=== PATIENT | male | born 1985 | race Caucasian/White ===

== ENCOUNTER 2018-10-06 21:55 | Emergency (ER) | payer OTHER ==
[2018-10-06] MEDS ORDERED: Adacel Vial IM ONE ×2 (22:16→22:23)
[2018-10-06] MEDS ORDERED: XYLOCAINE 1% HCL 20 ML MDV IJ ONE (22:16)
[2018-10-06] MEDS ORDERED: BACIGUENT PACKET TP ONE (22:16)
[2018-10-06] MEDS ORDERED: BACIGUENT PACKET ONE ×2 (22:22→22:51)
[2018-10-06] MEDS ORDERED: XYLOCAINE 1% HCL 20 ML MDV ONE (22:22)
--- NOTE | 2018-10-06 22:22 | ERPHSYRPT ---
- History of Present Illness Time Seen by Provider: 10/06/18 22:17 Source: patient Exam Limitations: no limitations Patient Subjective Stated Complaint: pt states he dropped an aquarium on his foot and it was cut. states he cant bear weight on his foot now. Triage Nursing Assessment: pt alert and oriented, answers questions approp. respirations nonlabored with lungs cta. pt to room per wheelchair, transfers to stretcher per self, nonwt bearing on rt foot. laceration noted to top of rt foot approx 3cm. with dried blood surrounding. minimal bleeding noted at this time. swelling and bruising noted around laceration. Physician History: 33-year-old white male arrives with complaint of pain on his right lateral foot symptoms for one half hours also a laceration on the right lateral foot or the same duration of time. Patient states he dropped in the chori[place] his right foot he has pain in his right lateral foot he has a jagged 3 cm laceration to the right lateral foot he states he has pain with walking the right foot. Past medical history is negative. Past surgical history is negative. Method of Injury: other (dropped an aquarium on his right foot) Occurred: this evening (2 hours prior to arrival) Quality: constant Severity of Pain-Max: moderate Severity of Pain-Current: moderate Lower Extremities Pain: foot: right Modifying Factors: Improves With: other (pain with walking right foot). Worsens With: cold therapy, immobilization, movement, pain medication, rest Associated Symptoms: none Allergies/Adverse Reactions: No Known Drug Allergies Allergy (Verified 10/06/18 22:18) Home Medications: No Reportable Medications [No Reported Medications] 10/06/18 [History] Hx Tetanus, Diphtheria Vaccination/Date Given: Yes (unsure when) Hx Influenza Vaccination/Date Given: No Hx Pneumococcal Vaccination/Date Given: No Immunizations Up to Date: Yes - Review of Systems Constitutional: No Fever, No Chills Eyes: No Symptoms Ears, Nose, & Throat: No Symptoms Respiratory: No Cough, No Dyspnea Cardiac: No Chest Pain, No Edema, No Syncope Abdominal/Gastrointestinal: No Abdominal Pain, No Nausea, No Vomiting, No Diarrhea Genitourinary Symptoms: No Dysuria Musculoskeletal: Injury, Other (Pain with walking right foot, 3 cm laceration right lateral foot) Skin: Other (3 cm laceration right lateral foot) Neurological: No Dizziness, No Focal Weakness, No Sensory Changes Psychological: No Symptoms Endocrine: No Symptoms All Other Systems: Reviewed and Negative - Past Medical History Pertinent Past Medical History: No - Past Surgical History Past Surgical History: No - Social History Smoking Status: Current every day smoker How long have you smoked: 20yrs Exposure to second hand smoke: Yes Drug Use: marijuana Patient Lives Alone: No - Nursing Vital Signs Nursing Vital Signs: Initial Vital Signs Temperature 97.8 F 10/06/18 22:02 Pulse Rate 90 10/06/18 22:02 Respiratory Rate 16 10/06/18 22:02 Blood Pressure 150/91 10/06/18 22:02 O2 Sat by Pulse Oximetry 100 10/06/18 22:02 Pain Scale Pain Intensity 10 - Physical Exam General Appearance: mild distress Eyes, Ears, Nose, Throat Exam: moist mucous membranes Neck Exam: non-tender, supple Cardiovascular/Respiratory Exam: chest non-tender, normal breath sounds, regular rate/rhythm, no respiratory distress Gastrointestinal/Abdominal Exam: non-tender, guarding Back Exam: normal inspection, No vertebral tenderness Hips Exam: bilateral: non-tender, normal inspection, normal range of motion, no evidence of injury Legs Exam: bilateral leg: non-tender, normal inspection, normal range of motion , no evidence of injury Knees Exam: bilateral knee: non-tender, normal inspection, normal range of motion, no evidence of injury Ankle Exam: bilateral ankle: non-tender, normal inspection, normal range of motion, no evidence of injury Foot Exam: right foot: abrasions/lacerations (3 cm laceration right lateral foot ), left foot: non-tender, normal inspection, no evidence of injury, bilateral foot: normal range of motion, bone tenderness (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 with 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 a) DTR - Lower Extremities Exam: ankle (R): 2+, ankle (L): 2+ Neuro/Tendon Exam: normal sensation, normal motor functions Mental Status Exam: alert, oriented x 3, cooperative Skin Exam: other (3 cm laceration right lateral foot) SpO2 Interpretation: normal (100%) SpO2: 100 Oxygen Delivery: Room Air - Course Nursing assessment & vital signs reviewed: Yes - Radiology Exams Right Foot X-ray Interpretation: Interpreted by me (x ray right foot: no fractures, no subluxation) Ordered Tests: Active Orders 24 hr Category Date Time Status Prepare for Sutures STAT Care 10/06/18 22:16 Active Sutures STAT Care 10/06/18 22:16 Active Wound Care STAT Care 10/06/18 22:16 Active FOOT (MINIMUM 3 VIEWS) Stat Exams 10/06/18 22:16 Taken Medication Summary Discontinued Medications Generic Name Dose Route Start Last Admin Trade Name Christq PRN Reason Stop Dose Admin Bacitracin Zinc 0.9 gm 10/06/18 22:16 10/06/18 22:28 Baciguent Packet TP 10/06/18 22:17 1 gm STAT ONE Administration Bacitracin Zinc Confirm 10/06/18 22:22 Baciguent Packet Administered 10/06/18 22:23 Dose 1 gm .ROUTE .STK-MED ONE Diphtheria/Tetanus/Acell Pertussis 0.5 ml 10/06/18 22:16 10/06/18 22:28 Adacel Vial IM 10/06/18 22:17 0.5 ml .ONCE ONE Administration Diphtheria/Tetanus/Acell Pertussis Confirm 10/06/18 22:23 Adacel Vial Administered 10/06/18 22:24 Dose 0.5 ml IM .STK-MED ONE Lidocaine HCl 5 ml 10/06/18 22:16 10/06/18 22:26 Xylocaine 1% Hcl 20 Ml Mdv IJ 10/06/18 22:17 5 ml STAT ONE Administration Lidocaine HCl Confirm 10/06/18 22:22 Xylocaine 1% Hcl 20 Ml Mdv Administered 10/06/18 22:23 Dose 5 ml .ROUTE .STK-MED ONE - Progress Progress: improved Progress Note: 10/06/18 22:50 Laceration repair.. 3 cm laceration right foot. Laceration sterilely prepped and draped. Anesthetized with 1% lidocaine. Laceration explored with cotton tip applicator no foreign bodies are noted. Laceration repaired with 6 5. 0 Ethilon interrupted sutures. Sterile dressing and bacitracin are applied. - Departure Time of Disposition: 22:51 Departure Disposition: Home Clinical Impression: Foot laceration Qualifiers: Encounter type: initial encounter Laterality: right Qualified Code(s): S91.311A - Laceration without foreign body, right foot, initial encounter Contusion of right foot Qualifiers: Encounter type: initial encounter Qualified Code(s): S90.31XA - Contusion of right foot, initial encounter Condition: Fair Critical Care Time: No Instructions: Laceration Repair With Stitches (DC) Additional Instructions: Return home. Ice and elevate right foot 24-48 hours. Bacitracin to laceration until healed. Sutures out in 5-7 days. [place] tonight one every 4-6 hours as needed for pain and then began Advil or Tylenol tomorrow as needed for pain. Follow-up with your family doctor or return if signs of infection or problems. Return for acute distress or for severe symptoms.
[2018-10-06] MEDS ORDERED: NORCO 5/325 MG PO ONE ×2 (22:49→22:53)
[2018-10-06] MEDS ORDERED: THIAMINE 200 MG/2 ML IV ONE (23:09)
[2018-10-06] MEDS ORDERED: NORCO 5/325 MG ONE (23:11)
[2018-10-06] MEDS ORDERED: Sodium Chloride 0.9% 1000 ML 1,000 ML IV SCH (23:15)
[2018-10-06 23:53] VITALS: BP 139/66; PULSE 88; O2SAT 98
--- NOTE | 2018-10-07 07:53 | XRAY ---
Indication: Lateral foot pain and laceration following injury. Impression: None 3 nonweightbearing views of the right foot obtained. No bony, articular, or soft tissue abnormalities.
== END 2018-10-06 23:54 | disposition home or self-care (01) ==
LOC: ED 21:55
DX: S91.311A Laceration without foreign body, right foot, initial encounter (principal); S90.31XA Contusion of right foot, initial encounter; W20.8XXA Other cause of strike by thrown, projected or falling object, initial encounter
CPT/HCPCS: 12002; 73630; 90471; 90715; 96372; 99284; A9270-GY